=== PATIENT | male | born 1985 | race African-American/Black ===

== ENCOUNTER 2016-10-20 04:12 | Emergency (ER) | payer MEDICARE, MEDICAID ==
[~2016-10-20] VITALS: Ht 175.3 cm; Wt 73.9 kg
[~2016-10-20 04:12] MED LIST: PROZAC; PROZAC10 MG ORAL; PROZAC20 MG PO; RESPERIDOL; RISPERDAL0.25 MG ORAL; RISPERDAL2 MG PO
[2016-10-20 04:29] VITALS: BP 113/74
--- NOTE | 2016-10-20 04:36 | Emergency Room Report ---
History of Present Illness General Chief Complaint: Substance Abuse Source: Patient Present Illness HPI Is a 31-year-old male with no past history. He presents with chief complaint of scabies. He said that he smokes as a method felt that there scabies in the skin. Denies any fever chills denies any nausea vomiting. Also has been drinking tonight. No other complaint. Allergies: Coded Allergies: No Known Allergies (Unverified , 06/26/12) Patient History Past Medical History: see triage record, old chart reviewed Past Surgical History: none Pertinent Family History: none Social History: Reports: drug use, Denies: smoking Immunizations: other Reviewed Nursing Documentation: PMH: Agreed, PSxH: Agreed Nursing Documentation-PMH History Of Psychiatric Problem: Yes - BIPOLAR,DEPRESSION,SCHIZO Review of Systems Eye: Denies: blurred vision, eye pain ENT: Denies: ear pain, nose congestion, throat swelling Respiratory: Denies: cough, shortness of breath Cardiovascular: Denies: chest pain, palpitations Gastrointestinal: Denies: abdominal pain, diarrhea, nausea, vomiting Musculoskeletal: Denies: back pain, joint pain Skin: Denies: rash Neurological: Denies: headache, numbness Endocrine: Denies: increased thirst, increased urine Hematologic/Lymphatic: Denies: easy bruising All Other Systems: negative except mentioned in HPI Physical Exam Vital Signs Date Time Temp Pulse Resp B/P Pulse Ox O2 Delivery O2 Flow Rate FiO2 10/20/16 04:08 97.9 74 16 113/74 98 Room Air vitals normal Sp02 EP Interpretation: reviewed, normal General Appearance: well appearing, no apparent distress, alert Head: normocephalic, atraumatic Eyes: bilateral eye EOMI, bilateral eye PERRL ENT: hearing grossly normal, normal pharynx Neck: full range of motion, supple, no meningismus Respiratory: chest non-tender, lungs clear, normal breath sounds Cardiovascular #1: regular rate, rhythm, no murmur Gastrointestinal: normal bowel sounds, non tender, no mass, no organomegaly, no bruit, non-distended Musculoskeletal: back normal, gait/station normal, normal range of motion Psychiatric: mood/affect normal Skin: warm/dry Medical Decision Making Diagnostic Impression: Primary Impression: Substance abuse Additional Impression: Psychogenic formication ER Course 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 No evidence of scabies on exam. We'll discharge home. Last Vital Signs Date Time Temp Pulse Resp B/P Pulse Ox O2 Delivery O2 Flow Rate FiO2 10/20/16 04:08 97.9 74 16 113/74 98 Room Air Status: improved Disposition: HOME, SELF-CARE Condition: Stable Patient Instructions: Stimulant Use Disorder-Methamphetamines Additional Instructions: Stop using drugs. Followup with your Dr. in 7 days. Return if worse. ESTEFANY GUADALUPE M.D. Oct 20, 2016 04:36
[2016-10-20 04:40] VITALS: BP 113/74
== END 2016-10-20 04:58 | disposition home or self-care (01) ==
LOC: EDBD 04:12 → EMR 04:34
DX: F45.8 Other somatoform disorders (principal); F19.10 Other psychoactive substance abuse, uncomplicated; Z86.59 Personal history of other mental and behavioral disorders
CPT/HCPCS: 99283

== ENCOUNTER 2017-02-22 01:11 | Emergency (ER) | payer MEDICARE, MEDICAID ==
[~2017-02-22] VITALS: Ht 175.3 cm; Wt 77.6 kg
[2017-02-22 01:11] VITALS: BP 123/79
--- NOTE | 2017-02-22 01:59 | Emergency Room Report ---
History of Present Illness General Chief Complaint: Substance Abuse Source: Patient Present Illness HPI Is a 31-year-old male with a history of schizophrenia. He is not in any psychiatric meds. He said he doesn't believe in them. Patient presents with chief complaint of hearing voices. He said this occurred after he was using meth yesterday. Denies any fever chills denies any nausea vomiting. No homicidal thought or suicidal thought. Said that he wants something to help him sleep. Hasn't slept in 2 days. Also said is hungry. Allergies: Coded Allergies: No Known Allergies (Unverified , 06/26/12) Patient History Past Medical History: see triage record, old chart reviewed, schizophrenia, reviewed nursing documentation Past Surgical History: other Family History: none Social History: tobacco use, drug use Immunizations: other Reviewed Nursing Documentation: PMH: Agreed, PSxH: Agreed Nursing Documentation-PMH Past Medical History: No Stated History Review of Systems ENT: Denies: sore throat Cardiovascular: Denies: chest pain, palpitations Gastrointestinal/Abdominal: Denies: diarrhea, nausea, vomiting Musculoskeletal: Denies: back problems Skin: Denies: rash Neurological: Denies: [place], seizures All Other Systems: negative except mentioned in HPI Physical Exam Vital Signs Date Time Temp Pulse Resp B/P Pulse Ox O2 Delivery O2 Flow Rate FiO2 02/22/17 01:04 98.2 63 16 123/79 100 Room Air vitals normal Sp02 EP Interpretation: reviewed, normal General Appearance: alert/responsive, no apparent distress, non-toxic Head: normocephalic, atraumatic Eyes: PERRL, EOMI ENT: oropharynx normal Neck: supple/symm/no masses Respiratory: effort normal, no rhonchi, no wheezing Cardiovascular: no murmur, gallop, rub Gastrointestinal: non-tender, no mass, non-distended, no rebound/guarding, normal bowel sounds Musculoskeletal: gait & station normal Neurologic: oriented x3, sensory intact, motor strength/tone normal Skin: no rash, normal palpation Medical Decision Making Diagnostic Impression: Primary Impression: Substance abuse Additional Impression: Psychosis Qualified Codes: F23 - Brief psychotic disorder ER Course Patient with acute psychosis secondary to drugs and psychiatric history. He is calm and collective. Better after Haldol. Does not want to stay in hospital. Does not want social service consult. We'll discharge home. Last Vital Signs Date Time Temp Pulse Resp B/P Pulse Ox O2 Delivery O2 Flow Rate FiO2 02/22/17 01:11 98.2 63 16 123/79 100 Room Air Status: improved Disposition: HOME, SELF-CARE Condition: Stable Patient Instructions: Substance Use Disorder Additional Instructions: Stop using drugs and alcohol. Followup with mental health in the week. Return if worse. ESTEFANY GUADALUPE M.D. Feb 22, 2017 01:59
[2017-02-22 03:11] VITALS: BP 115/69
[2017-02-22 05:11] VITALS: BP 120/72
[2017-02-22 06:08] VITALS: BP 128/71
== END 2017-02-22 06:08 | disposition home or self-care (01) ==
LOC: EDBD 01:11 → EMR 01:15
DX: F15.10 Other stimulant abuse, uncomplicated (principal); F29 Unspecified psychosis not due to a substance or known physiological condition
CPT/HCPCS: 99283